=== PATIENT | male | born 1960 ===

== ENCOUNTER 2024-06-25 15:11 | Outpatient (CLI) | payer SELFPAY ==
[2024-06-25 12:29] LABS: Abs Immature Grans 0.02 10^3/uL (0.0-0.06); Absolute Basophil Count 0.04 10^3/uL (0.0-0.2); Absolute Eosinophil Count 0.51 10^3/uL (0.0-0.7); Absolute Lymphocyte Count 0.69 10^3/uL (1.2-3.4); Absolute Monocyte Count 0.42 10^3/uL (0.1-0.8); Absolute Neutrophil Count 3.48 10^3/uL (1.2-6.7); Basophils % 0.8 %; Eosinophils % 9.9 %; HCT 37.7 % (40.0-50.0); HGB 12.3 g/dL (13.5-17.5); Immature Grans % 0.4 %; Lymphocytes % 13.4 %; MCHC 32.6 % (32.0-36.0); MCV 86 fL (80-95); MPV 8.9 fL (8.0-11.0); Monocytes % 8.1 %; Neutrophils % 67.4 %; Platelet Count 151 10^3/uL (130-400); RDW 15.9 % (11.8-14.1); RDW-SD 50.4 fL; WBC 5.16 10^3/uL (4.4-10.8)
[2024-06-25 13:13] LABS: ALT 19 U/L (16-63); AST 22 U/L (15-37); Alkaline Phosphatase 329 U/L (46-116); Anion Gap 15.6 mmol/L (3-11); BUN 24 mg/dL (7-18); Bilirubin, Total 0.53 mg/dL (0.2-1.0); CO2 24.4 mmol/L (21.0-32.0); CREATININE 1.4 mg/dL (0.70-1.30); Calcium 9.5 mg/dL (8.5-10.1); Chloride 95 mmol/L (98-107); Estimated GFR 55.78 (mL/min/1.73m2); Ferritin 310 ng/mL (26-388); Glucose 133 mg/dL (74-106); Potassium 3.9 mmol/L (3.5-5.1); Sodium 135 mmol/L (136-145); Total Protein 8.4 g/dL (6.4-8.2)
[2024-06-25 13:18] LABS: Vitamin B12 > 2000 pg/mL (193-986)
[2024-06-26 09:53] LABS: IgA 158 mg/dL (85-499); IgG 779 mg/dL (610-1616); IgM 347 mg/dL (35-242); Kappa Free Light Chain 4.04 mg/dL (0.33-1.94); Lambda Free Light Chain 2.45 mg/dL (0.57-2.63)
[2024-06-26 13:08] LABS: Albumin 53.3 % (55.8-66.1); Albumin g/dL 4.1 g/dL (3.6-5.2); Total Protein 7.6 g/dL (6.3-8.2)
== END 2024-06-25 15:12 | disposition home or self-care (01) ==
PROVIDERS: PCP Family Medicine; Visit Provider Internal Medicine Hematology & Oncology
DX: D61.818 Other pancytopenia (principal); D63.8 Anemia in other chronic diseases classified elsewhere
CPT/HCPCS: 36415; 80053; 82784; 82607; 82728; 82746; 83883; 84165; 85025; 85045